=== PATIENT | male | born 1960 | race Two or more races ===

== ENCOUNTER 2019-08-09 16:13 | Inpatient (IN) | payer BC ==
[~2019-08-09] VITALS: Ht 163 cm; Wt 69.0 kg
[2019-08-09 19:00] VITALS: BP 138/88
[2019-08-09] MEDS: MAGNESIUM HYDROXIDE SUSPENSION 30 ML UDCUP PO PRN (21:45)
[2019-08-09] MEDS: SENNA 187 MG TABLET PO SCH (21:46)
[2019-08-09] MEDS: DOCUSATE SODIUM 100 MG CAPSULE PO SCH (21:46)
[2019-08-09] MEDS: CARVEDILOL 12.5 MG TABLET PO SCH (21:46)
[2019-08-09 23:26] VITALS: BP 107/70
[2019-08-09] MEDS: ENOXAPARIN SODIUM 30 MG/0.3 ML PF SYRINGE SQ SCH (23:39)
[2019-08-09] MEDS ORDERED: INFLUENZA VIRUS VACCINE QVS 2019-20 (3YR+)/PF 60 MCG/0.5 ML SYRINGE IM ONE (23:45)
[2019-08-10] MEDS: ACETAMINOPHEN 325 MG TABLET PO PRN (00:17)
[2019-08-10 07:34] LABS: BASOPHILS % (AUTO) 0.9 % (0.0-2.0); EOSINOPHILS % (AUTO) 0.6 % (1.0-6.0); HEMATOCRIT 40.6 % (41-53); HEMOGLOBIN 13.6 g/dL (13.5-17.5); LYMPHOCYTES # (AUTO) 0.9 K/uL (1.0-4.8); LYMPHOCYTES % (AUTO) 23.5 % (22.0-44.0); MEAN CORPUSCULAR HEMOGLOBIN 28.8 pg (26.0-34.0); MEAN CORPUSCULAR HGB CONC 33.6 G/dL (31.0-37.0); MEAN CORPUSCULAR VOLUME 86 fL (80-100); MONOCYTES # (AUTO) 0.5 K/uL (0.1-1.0); MONOCYTES % (AUTO) 13.8 % (2.0-9.0); NEUTROPHILS # (AUTO) 2.4 K/uL (1.8-7.7); NEUTROPHILS % (AUTO) 61.2 % (40.0-70.0); PLATELET COUNT (AUTO) 204 K/uL (150-450); RED BLOOD CELL COUNT(AUTO) 4.73 MIL/uL (4.50-5.90); RED CELL DISTRIBUTION WIDTH 14.4 % (11.5-14.5)
[2019-08-10 07:45] VITALS: BP 122/57
[2019-08-10] MEDS: ATORVASTATIN CALCIUM 40 MG TABLET PO SCH (07:45)
[2019-08-10] MEDS: CLOPIDOGREL BISULFATE 75 MG TABLET PO SCH (07:45)
[2019-08-10] MEDS: TAMSULOSIN HCL 0.4 MG CAPSULE PO SCH (07:45)
[2019-08-10] MEDS: ASPIRIN 325 MG TABLET PO SCH (07:45)
[2019-08-10] MEDS: DOCUSATE SODIUM 100 MG CAPSULE PO SCH ×2 (07:45→20:08)
[2019-08-10] MEDS: DUTASTERIDE 0.5 MG CAPSULE PO SCH (07:45)
[2019-08-10] MEDS: LOSARTAN POTASSIUM 50 MG TABLET PO SCH (07:45)
[2019-08-10] MEDS: ENOXAPARIN SODIUM 30 MG/0.3 ML PF SYRINGE SQ SCH ×2 (07:45→20:08)
[2019-08-10] MEDS: POLYETHYLENE GLYCOL 3350 17 GM PACKET PO SCH (07:46)
[2019-08-10] MEDS: CARVEDILOL 12.5 MG TABLET PO SCH ×2 (07:56→20:08)
[2019-08-10 07:58] LABS: ALANINE AMINOTRANSFERASE 37 U/L (12-78); ALBUMIN 2.8 g/dL (3.4-5.0); ALKALINE PHOSPHATASE 67 U/L (46-116); ANION GAP 9 mmol/L (8-16); ASPARTATE AMINOTRANSFERASE 30 U/L (15-37); BILIRUBIN,TOTAL 0.3 mg/dL (0.1-1.0); CALCIUM, TOTAL 8.5 mg/dL (8.8-10.5); CARBON DIOXIDE 28 mmol/L (22-29); CHLORIDE 107 mmol/L (98-107); CREATININE 0.65 mg/dL (0.60-1.30); GLOMERULAR FILTR. RATE CALC > 60 mL/min (>60); GLUCOSE,RANDOM 102 mg/dL (70-110); POTASSIUM 3.7 mmol/L (3.5-5.1); SODIUM SERUM 144 mmol/L (136-145); TOTAL PROTEIN, SERUM 6.1 g/dL (6.4-8.2); UREA NITROGEN, BLOOD 12 mg/dL (7-18)
[2019-08-10] MEDS ORDERED: DEXTROSE 5%-0.9% SODIUM CHL 1,000 ML IV ONE (12:15)
[2019-08-10] MEDS: DEXTROSE 5%-0.9% SODIUM CHL 1,000 ML IV SCH ×2 (13:59→23:17)
[2019-08-10 16:00] VITALS: BP 118/79
[2019-08-10] MEDS: MAGNESIUM HYDROXIDE SUSPENSION 30 ML UDCUP PO PRN (18:32)
[2019-08-10] MEDS: SENNA 187 MG TABLET PO SCH (20:08)
[2019-08-10] MEDS: MELATONIN 3 MG TABLET PO SCH (20:09)
[2019-08-10 23:22] VITALS: BP 124/78
[2019-08-11] MEDS: ATORVASTATIN CALCIUM 40 MG TABLET PO SCH (08:58)
[2019-08-11] MEDS: TAMSULOSIN HCL 0.4 MG CAPSULE PO SCH (08:58)
[2019-08-11] MEDS: LOSARTAN POTASSIUM 50 MG TABLET PO SCH (08:58)
[2019-08-11] MEDS: POLYETHYLENE GLYCOL 3350 17 GM PACKET PO SCH (08:58)
[2019-08-11] MEDS: ASPIRIN 325 MG TABLET PO SCH (08:58)
[2019-08-11] MEDS: MAGNESIUM HYDROXIDE SUSPENSION 30 ML UDCUP PO PRN (08:58)
[2019-08-11] MEDS: DOCUSATE SODIUM 100 MG CAPSULE PO SCH ×2 (08:58→20:43)
[2019-08-11] MEDS: CARVEDILOL 12.5 MG TABLET PO SCH ×2 (08:59→20:43)
[2019-08-11] MEDS: CLOPIDOGREL BISULFATE 75 MG TABLET PO SCH (08:59)
[2019-08-11] MEDS: ENOXAPARIN SODIUM 30 MG/0.3 ML PF SYRINGE SQ SCH ×2 (09:00→20:43)
[2019-08-11] MEDS: DUTASTERIDE 0.5 MG CAPSULE PO SCH (09:01)
[2019-08-11 09:46] VITALS: BP 119/62
[2019-08-11 10:15] VITALS: BP 119/62
[2019-08-11] MEDS ORDERED: DEXTROSE 5%-0.9% SODIUM CHL 1,000 ML IV ONE (10:45)
[2019-08-11] MEDS: MAGNESIUM HYDROXIDE SUSPENSION 30 ML UDCUP PO SCH ×2 (16:05→23:39)
[2019-08-11] MEDS: MELATONIN 3 MG TABLET PO SCH (20:43)
[2019-08-11] MEDS: SENNA 187 MG TABLET PO SCH (20:43)
[2019-08-11 20:47] VITALS: BP 116/68
[2019-08-11 23:45] VITALS: BP 125/75
[2019-08-12] MEDS: MAGNESIUM HYDROXIDE SUSPENSION 30 ML UDCUP PO SCH ×3 (05:36→18:00)
[2019-08-12 07:40] VITALS: BP 132/76
[2019-08-12] MEDS: CLOPIDOGREL BISULFATE 75 MG TABLET PO SCH (10:03)
[2019-08-12] MEDS: CARVEDILOL 12.5 MG TABLET PO SCH ×2 (10:03→20:45)
[2019-08-12] MEDS: DUTASTERIDE 0.5 MG CAPSULE PO SCH (10:03)
[2019-08-12] MEDS: LOSARTAN POTASSIUM 50 MG TABLET PO SCH (10:03)
[2019-08-12] MEDS: TAMSULOSIN HCL 0.4 MG CAPSULE PO SCH (10:03)
[2019-08-12] MEDS: ATORVASTATIN CALCIUM 40 MG TABLET PO SCH (10:03)
[2019-08-12] MEDS: ASPIRIN 325 MG TABLET PO SCH (10:03)
[2019-08-12] MEDS: POLYETHYLENE GLYCOL 3350 17 GM PACKET PO SCH (10:04)
[2019-08-12] MEDS: ENOXAPARIN SODIUM 30 MG/0.3 ML PF SYRINGE SQ SCH (10:04)
[2019-08-12] MEDS: DOCUSATE SODIUM 100 MG CAPSULE PO SCH ×2 (10:04→20:46)
[2019-08-12] MEDS ORDERED: MAGNESIUM CITRATE 300 ML ORAL SOLUTION PO ONE (11:30)
[2019-08-12 15:56] VITALS: BP 116/67
[2019-08-12 17:36] LABS: APPEARANCE,URINE TURBID (CLEAR); GLUCOSE, URINE (UA) NEGATIVE (NEGATIVE); KETONES,URINE TRACE mg/dL (NEGATIVE); LEUKOCYTE ESTERASE ,URINE MODERATE (NEGATIVE); NITRATE,URINE POSITIVE (NEGATIVE); OCCULT BLOOD,URINE LARGE (NEGATIVE); PH,URINE 6.5 (5.0-8.0); PROTEIN,URINE SEE CONFIRM (NEGATIVE)
[2019-08-12 17:40] LABS: BILIRUBIN,URINE PRELIM. POSITIVE (NEGATIVE)
[2019-08-12 17:50] LABS: RBC,URINE >100 /HPF (0-2); SULFOSALICYLIC ACID,URINE 3+ (Negative)
[2019-08-12 17:51] LABS: BACTERIA,URINE Many /HPF (None Seen); WBC,URINE 51-100 /HPF (0-5)
[2019-08-12 17:52] LABS: SQUAMOUS EPITHELIAL CELL,UR Moderate /LPF (None Seen)
[2019-08-12] MEDS: MELATONIN 3 MG TABLET PO SCH (20:46)
[2019-08-12] MEDS: SENNA 187 MG TABLET PO SCH (20:46)
[2019-08-12 23:41] VITALS: BP 114/69
[2019-08-13] MEDS: MAGNESIUM HYDROXIDE SUSPENSION 30 ML UDCUP PO SCH ×3 (00:03→12:34)
[2019-08-13] MEDS: ACETAMINOPHEN 325 MG TABLET PO PRN (02:50)
[2019-08-13 07:51] VITALS: BP 122/76
[2019-08-13] MEDS: POLYETHYLENE GLYCOL 3350 17 GM PACKET PO SCH (09:13)
[2019-08-13] MEDS: ASPIRIN 325 MG TABLET PO SCH (09:13)
[2019-08-13] MEDS: CLOPIDOGREL BISULFATE 75 MG TABLET PO SCH (09:14)
[2019-08-13] MEDS: ATORVASTATIN CALCIUM 40 MG TABLET PO SCH (09:14)
[2019-08-13] MEDS: TAMSULOSIN HCL 0.4 MG CAPSULE PO SCH (09:14)
[2019-08-13] MEDS: CARVEDILOL 12.5 MG TABLET PO SCH ×2 (09:14→20:53)
[2019-08-13] MEDS: DUTASTERIDE 0.5 MG CAPSULE PO SCH (09:15)
[2019-08-13] MEDS: LOSARTAN POTASSIUM 50 MG TABLET PO SCH (09:15)
[2019-08-13] MEDS: DOCUSATE SODIUM 100 MG CAPSULE PO SCH ×2 (09:16→20:52)
[2019-08-13 16:20] VITALS: BP 110/71
[2019-08-13] MEDS ORDERED: MAGNESIUM HYDROXIDE SUSPENSION 30 ML UDCUP PO PRN (16:45)
[2019-08-13] MEDS: SENNA 187 MG TABLET PO SCH (20:52)
[2019-08-13] MEDS: MELATONIN 3 MG TABLET PO SCH (20:53)
[2019-08-14 00:22] VITALS: BP 115/77
[2019-08-14] MEDS: ACETAMINOPHEN 325 MG TABLET PO PRN (00:22)
[2019-08-14 07:15] VITALS: BP 123/86
[2019-08-14] MEDS ORDERED: MULTIVITAMINS WITH MINERALS, THERAPEUTIC TABLET PO SCH (09:00)
[2019-08-14] MEDS: ATORVASTATIN CALCIUM 40 MG TABLET PO SCH (09:14)
[2019-08-14] MEDS: CLOPIDOGREL BISULFATE 75 MG TABLET PO SCH (09:14)
[2019-08-14] MEDS: ASPIRIN 325 MG TABLET PO SCH (09:14)
[2019-08-14] MEDS: CARVEDILOL 12.5 MG TABLET PO SCH (09:15)
[2019-08-14] MEDS: DOCUSATE SODIUM 100 MG CAPSULE PO SCH (09:15)
[2019-08-14] MEDS: TAMSULOSIN HCL 0.4 MG CAPSULE PO SCH (09:15)
[2019-08-14] MEDS: DUTASTERIDE 0.5 MG CAPSULE PO SCH (09:15)
[2019-08-14] MEDS: LOSARTAN POTASSIUM 50 MG TABLET PO SCH (09:15)
[2019-08-14] MEDS: POLYETHYLENE GLYCOL 3350 17 GM PACKET PO SCH (09:16)
[2019-08-14] MEDS ORDERED: NITROFURANTOIN/NITROFURAN MAC 100 MG CAPSULE [MACROBID] PO SCH (11:45)
[2019-08-14] MEDS ORDERED: ASPI-1484 PO (13:39)
[2019-08-14] MEDS ORDERED: ATOR-2 PO (13:39)
[2019-08-14] MEDS ORDERED: DOCU100C34 PO (13:39)
[2019-08-14] MEDS ORDERED: CLOP75TA3 PO (13:39)
[2019-08-14] MEDS ORDERED: CARV6.2579 PO (13:39)
[2019-08-14] MEDS ORDERED: DUTA0.5C18 PO (13:41)
[2019-08-14] MEDS ORDERED: MULT-1239 PO (13:45)
[2019-08-14] MEDS ORDERED: LOSA50TA2 PO (13:45)
[2019-08-14] MEDS ORDERED: SENN-176 PO (13:46)
[2019-08-14] MEDS ORDERED: POLY238P2 PO (13:46)
[2019-08-14] MEDS ORDERED: TAMS-1 PO (13:47)
[2019-08-14] MEDS ORDERED: NITR100C4 PO (13:47)
== END 2019-08-14 13:00 | DRG 57 ==
LOC: 2WR 18:03
DX: I69.351 Hemiplegia and hemiparesis following cerebral infarction affecting right dominant side (principal); R13.10 Dysphagia, unspecified; E03.9 Hypothyroidism, unspecified; I10 Essential (primary) hypertension; K59.00 Constipation, unspecified; F17.200 Nicotine dependence, unspecified, uncomplicated; Z82.49 Family history of ischemic heart disease and other diseases of the circulatory system; Z83.3 Family history of diabetes mellitus; Z87.442 Personal history of urinary calculi; Z23 Encounter for immunization
CPT/HCPCS: 87081; 87086; 90686; 92507; 92523; 97112; 97116; 97163; 97167; 97530; 97535; 99366; 99368; J1650; J7042